=== PATIENT | female | born 1970 | race American Indian/Alaskan Native ===

== ENCOUNTER 2019-11-02 23:01 | Emergency (ER) | payer OTHER ==
[2019-11-02] MEDS ORDERED: SODIUM CHLORIDE 0.9% 1000 ML 1,000 ML IV ONE (23:47)
[2019-11-02 23:55] LABS: Alanine Aminotransferase 9 units/L (7-56); Albumin 4.3 g/dL (3.9-5); BUN/Creatinine Ratio 15; Blood Urea Nitrogen 12 mg/dL (7-17); Hemolysis Index 9
[2019-11-03 00:02] LABS: Mean Corpuscular HGB Conc 29 % (30-34); Platelet Count 438 K/mm3 (140-440); Red Blood Count 5.33 M/mm3 (3.65-5.03)
[2019-11-03 00:03] LABS: Hemoglobin 8.2 gm/dl (10.1-14.3); Mean Corpuscular Volume 53 fl (79-97); Red Cell Distribution Width 22.8 % (13.2-15.2)
--- NOTE | 2019-11-03 00:41 | XRay Report ---
CHEST 1 VIEW 11/03/2019 12:08 AM INDICATION / CLINICAL INFORMATION: dizziness. COMPARISON: None available. FINDINGS: SUPPORT DEVICES: None. HEART / MEDIASTINUM: Heart is normal size. There is deviation of the trachea to the right with soft t issue density in the left upper mediastinum/neck. LUNGS / PLEURA: No significant pulmonary or pleural abnormality. No pneumothorax. ADDITIONAL FINDINGS: No significant additional findings. IMPRESSION: 1. No acute pulmonary or pleural findings. 2. Rightward tracheal deviation with soft tissue density on the left possibly related to enlarged thy roid. Clinical correlation is recommended. Signer Name: Christina Lam MD Signed: 11/03/2019 12:37 AM Workstation Name: [id number]
--- NOTE | 2019-11-03 00:53 | Emergency Department Report ---
ED Dizziness HPI - General Chief Complaint: Dizziness Stated Complaint: DIZZY, WEAK, AND DIARRHEA Time Seen by Provider: 11/02/19 23:41 Source: patient Mode of arrival: Ambulatory Limitations: No Limitations - History of Present Illness Initial Comments: Ms. Troy is a 48-year-old -[place] female with a history of hypothyroid disease and umbilical hernia who presents for dizziness after allergic reaction episode that started on yesterday. She states she began to break out in hives on yesterday not sure of cause however hives are all resolved at this time she does complain of intermittent itching cough and sore throat. There is no fever or chills. There was intermittent nausea vomiting on yesterday. Patient states symptoms are relieved by rest. Symptoms are exacerbated by activity.. Patient [facility]. She denies palpitations shortness of breath or chest pain at this time. Patient is tolerating p.o. intake without nausea vomiting at this time patient does not appear toxic and with no acute respiratory distress at this time. MD Complaint: dizziness Onset/Timin -: days(s) Timing: sudden onset Description: other (dizziness ) History of Same: No History of Trauma: No Severity: mild Improves With: rest Worsens With: movement Associated Symptoms: rash. denies: ataxia, chest pain, confusion, cough, diaphoresis, fever/chills, malaise, shortness of breath, syncope, weakness - Related Data Previous Rx's Medication Instructions Recorded Last Taken Type Acetaminophen/Codeine [Tylenol 1 tab PO Q6H PRN #12 tab 11/03/19 Unknown Rx /Codeine # 3 tab] Allergies Allergy/AdvReac Type Severity Reaction Status Date / Time No Known Allergies Allergy Unverified 11/02/19 23:10 ED Review of Systems ROS: Stated complaint: DIZZY, WEAK, AND DIARRHEA Other details as noted in HPI Constitutional: denies: chills, fever Eyes: denies: eye pain, eye discharge, vision change ENT: throat pain, congestion. denies: ear pain Respiratory: orthopnea. denies: cough, shortness of breath, wheezing Cardiovascular: denies: chest pain, palpitations Endocrine: no symptoms reported Gastrointestinal: denies: abdominal pain, nausea, vomiting, diarrhea Genitourinary: denies: urgency, dysuria, discharge Musculoskeletal: denies: back pain, joint swelling, arthralgia Skin: denies: rash, lesions Neurological: denies: headache, weakness, paresthesias Psychiatric: denies: anxiety, depression Hematological/Lymphatic: denies: easy bleeding, easy bruising ED Past Medical Hx - Past Medical History Previous Medical History?: No - Surgical History Past Surgical History?: Yes Additional Surgical History: Hernia repair - Social History Smoking Status: Never Smoker Substance Use Type: None - Medications Home Medications: Home Medications Medication Instructions Recorded Confirmed Last Taken Type Acetaminophen/Codeine [Tylenol 1 tab PO Q6H PRN #12 tab 11/03/19 Unknown Rx /Codeine # 3 tab] ED Physical Exam - General Limitations: No Limitations General appearance: alert, in no apparent distress - Head Head exam: Present: atraumatic, normocephalic - Eye Eye exam: Present: normal appearance, PERRL, EOMI Pupils: Present: normal accommodation - ENT ENT exam: Present: mucous membranes moist, TM's normal bilaterally, normal external ear exam - Expanded ENT Exam Expanded Ear exam: Present: normal external inspection Mouth exam: Present: normal external inspection, tongue normal. Absent: trismus, muffled voice Throat exam: Positive: normal inspection, tonsillar erythema, tonsillomegaly, other (uvula midline no exudate ). Negative: tonsillar exudate, R peritonsillar mass, L peritonsillar mass - Neck Neck exam: Present: normal inspection, full ROM, thyromegaly. Absent: tenderness, meningismus, lymphadenopathy - Expanded Neck Exam Expanded Neck exam: Present: thyroid mass. Absent: tenderness, midline deformity, carotid bruit, tracheal deviation - Respiratory Respiratory exam: Present: normal lung sounds bilaterally. Absent: respiratory distress, wheezes, rales, rhonchi, stridor, chest wall tenderness - Cardiovascular Cardiovascular Exam: Present: regular rate, normal rhythm, normal heart sounds. Absent: systolic murmur, diastolic murmur, rubs, gallop - GI/Abdominal GI/Abdominal exam: Present: soft, normal bowel sounds. Absent: distended, tenderness, bruit, hernia - Rectal Rectal exam: Present: deferred - Extremities Exam Extremities exam: Present: normal inspection - Back Exam Back exam: Present: normal inspection, full ROM. Absent: tenderness, CVA tenderness (R), CVA tenderness (L), vertebral tenderness - Neurological Exam Neurological exam: Present: alert, oriented X3, CN II-XII intact, normal gait - Psychiatric Psychiatric exam: Present: normal affect - Skin Skin exam: Present: warm ED Course Vital Signs 11/02/19 11/03/19 11/03/19 23:15 01:09 03:19 Temperature 98.1 F 98.7 F Pulse Rate 111 H 99 H 92 H Respiratory 20 16 17 Rate Blood Pressure 101/58 Blood Pressure 126/78 [Right] O2 Sat by Pulse 100 100 100 Oximetry ED Medical Decision Making - Lab Data Result diagrams: 11/02/19 23:23 11/02/19 23:23 Labs 11/02/19 11/02/19 11/02/19 23:23 23:23 23:23 WBC 8.3 RBC 5.33 H Hgb 8.2 L Hct 28.0 L MCV 53 L MCH 15 L MCHC 29 L RDW 22.8 H Plt Count 438 Lymph % (Auto) Welding Robot Operator [place] % (Auto) Welding Robot Operator Eos % (Auto) Welding Robot Operator Baso % (Auto) Welding Robot Operator Lymph # Welding Robot Operator [place] # Welding Robot Operator Eos # Welding Robot Operator Baso # Welding Robot Operator Add Manual Diff Complete Total Counted 100 Seg Neutrophils % Welding Robot Operator Seg Neuts % (Manual) 87.0 H Band Neutrophils % 0 Lymphocytes % (Manual) 12.0 L Reactive Lymphs % (Man) 0 Monocytes % (Manual) 1.0 Eosinophils % (Manual) 0 Basophils % (Manual) 0 Metamyelocytes % 0 Myelocytes % 0 Promyelocytes % 0 Blast Cells % 0 Nucleated RBC % Not Reportable Seg Neutrophils # Welding Robot Operator Seg Neutrophils # Man 7.2 Band Neutrophils # 0.0 Lymphocytes # (Manual) 1.0 L Abs React Lymphs (Man) 0.0 Monocytes # (Manual) 0.1 Eosinophils # (Manual) 0.0 Basophils # (Manual) 0.0 Metamyelocytes # 0.0 Myelocytes # 0.0 Promyelocytes # 0.0 Blast Cells # 0.0 WBC Morphology Not Reportable Hypersegmented Neuts Not Reportable Hyposegmented Neuts Not Reportable Hypogranular Neuts Not Reportable Smudge Cells Not Reportable Toxic Granulation Not Reportable Toxic Vacuolation Not Reportable Dohle Bodies Not Reportable Pelger-Huet Anomaly Not Reportable Adam Rods Not Reportable Platelet Estimate Consistent w auto Clumped Platelets Not Reportable Plt Clumps, EDTA Not Reportable Large Platelets Not Reportable Giant Platelets Not Reportable Platelet Satelliting Not Reportable Plt Morphology Comment Not Reportable RBC Morphology Not Reportable Dimorphic RBCs Not Reportable Polychromasia Not Reportable Hypochromasia 1+ Poikilocytosis Not Reportable Anisocytosis 1+ Microcytosis 1+ Macrocytosis Not Reportable Spherocytes Not Reportable Pappenheimer Bodies Not Reportable Sickle Cells Not Reportable Target Cells Not Reportable Tear Drop Cells Not Reportable Ovalocytes Not Reportable Helmet Cells Not Reportable Benavides-[place] Bodies Not Reportable [place] Rings Not Reportable Tigre Cells Not Reportable Bite Cells Not Reportable Crenated Cell Not Reportable Elliptocytes 1+ Acanthocytes (Spur) Not Reportable Rouleaux Not Reportable Hemoglobin C Crystals Not Reportable Schistocytes Not Reportable Malaria parasites Not Reportable Bong Bodies Not Reportable Hem Pathologist Commnt No Sodium 135 L Potassium 3.3 L Chloride 102.5 Carbon Dioxide 19 L Anion Gap 17 BUN 12 Creatinine 0.8 Estimated GFR > 60 BUN/Creatinine Ratio 15 Glucose 116 H Calcium 9.0 Total Bilirubin 0.20 AST 20 ALT 9 Alkaline Phosphatase 42 Troponin T < 0.010 Total Protein 7.2 Albumin 4.3 Albumin/Globulin Ratio 1.5 Lipase 33 TSH Urine Color Urine Turbidity Urine pH Ur Specific [place] Urine Protein Urine Glucose (UA) Urine Ketones Urine Blood Urine Nitrite Urine Bilirubin Urine Urobilinogen Ur Leukocyte Esterase Urine WBC (Auto) Urine RBC (Auto) U Epithel Cells (Auto) Urine Mucus 11/03/19 11/03/19 01:39 01:55 WBC RBC Hgb Hct MCV MCH MCHC RDW Plt Count Lymph % (Auto) [place] % (Auto) Eos % (Auto) Baso % (Auto) Lymph # [place] # Eos # Baso # Add Manual Diff Total Counted Seg Neutrophils % Seg Neuts % (Manual) Band Neutrophils % Lymphocytes % (Manual) Reactive Lymphs % (Man) Monocytes % (Manual) Eosinophils % (Manual) Basophils % (Manual) Metamyelocytes % Myelocytes % Promyelocytes % Blast Cells % Nucleated RBC % Seg Neutrophils # Seg Neutrophils # Man Band Neutrophils # Lymphocytes # (Manual) Abs React Lymphs (Man) Monocytes # (Manual) Eosinophils # (Manual) Basophils # (Manual) Metamyelocytes # Myelocytes # Promyelocytes # Blast Cells # WBC Morphology Hypersegmented Neuts Hyposegmented Neuts Hypogranular Neuts Smudge Cells Toxic Granulation Toxic Vacuolation Dohle Bodies Pelger-Huet Anomaly Adam Rods Platelet Estimate Clumped Platelets Plt Clumps, EDTA Large Platelets Giant Platelets Platelet Satelliting Plt Morphology Comment RBC Morphology Dimorphic RBCs Polychromasia Hypochromasia Poikilocytosis Anisocytosis Microcytosis Macrocytosis Spherocytes Pappenheimer Bodies Sickle Cells Target Cells Tear Drop Cells Ovalocytes Helmet Cells Benavides-[place] Bodies [place] Rings Tigre Cells Bite Cells Crenated Cell Elliptocytes Acanthocytes (Spur) Rouleaux Hemoglobin C Crystals Schistocytes Malaria parasites Bong Bodies Hem Pathologist Commnt Sodium Potassium Chloride Carbon Dioxide Anion Gap BUN Creatinine Estimated GFR BUN/Creatinine Ratio Glucose Calcium Total Bilirubin AST ALT Alkaline Phosphatase Troponin T Total Protein Albumin Albumin/Globulin Ratio Lipase TSH 0.213 L Urine Color Straw Urine Turbidity Clear Urine pH 5.0 Ur Specific [place] 1.008 Urine Protein <15 mg/dl Urine Glucose (UA) Neg Urine Ketones Neg Urine Blood Lg Urine Nitrite Neg Urine Bilirubin Neg Urine Urobilinogen < 2.0 Ur Leukocyte Esterase Neg Urine WBC (Auto) 1.0 Urine RBC (Auto) 1.0 U Epithel Cells (Auto) 2.0 Urine Mucus Few - EKG Data EKG shows normal: sinus rhythm, axis, intervals, QRS complexes, ST-T waves Rate: normal - EKG Data Interpretation: no acute changes, normal EKG (NSR no ST Elevated NV ekg interp by ed attending. ) - Radiology Data Radiology results: report reviewed, image reviewed Findings Reporting MD: Christina Lam Dictation Time: November 03, 2019 03:01 Sap Developer: Not available [employer] Table Assembler Date: CT NECK WITH CONTRAST INDICATION / CLINICAL INFORMATION: Pt complains of a neck mass that is re current from time to time. The mass is anterior, just below the hyoid. Present for 4 days. Omnipaque 300 / 100ml's was used for this exam. 1.5cc per second, 22g RT Dosumpedus. TECHNIQUE: Axial CT images were obtained through the neck after 100 mL Omnipaque 300 IV contrast. Coronal and sagittal 2-D reconstruction images were produced. All CT scans at this location are performed using CT dose reduction for ALARA by means of automated exposure control. COMPARISON: Chest radiograph earlier in the day FINDINGS: CUTANEOUS and SUBCUTANEOUS SOFT TISSUES: No significant abnormality. AERODIGESTIVE TRACT and ADJACENT SOFT TISSUES: No significant abnormality. SALIVARY GLANDS: No significant abnormality. LYMPH NODES: No significant abnormality. VASCULAR STRUCTURES: No significant abnormality. ORBITS AND IMAGED BRAIN: No significant abnormality. PARANASAL SINUSES / MASTOIDS: No significant abnormality. TEETH and PERIODONTAL TISSUES: No significant abnormality. CERVICAL SPINE: No significant abnormality. THYROID GLAND: Thyroid gland is markedly enlarged involving both lobes. The left lobe, however, is larger than the right with rightward deviation of the trachea. There are scattered calcifications within the thyroid gland. There is a mildly prominent pyramidal lobe which extends superiorly from the thyroid gland to the inferior margin of the hyoid bone. This likely corresponds to the palpable abnormality. SUPERIOR MEDIASTINUM: Enlarged thyroid gland extends substernal in location. LUNG APICES: No significant abnormality. ADDITIONAL FINDINGS: None. IMPRESSION: 1. 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 2. Mildly prominent pyramidal lobe of the thyroid gland which extends superiorly from the thyroid to the inferior margin of the hyoid bone and likely corresponds to the palpable abnormality. Signer Name: Christina Lam MD Signed: 11/03/2019 3:01 AM Workstation Name: [id number] Findings Reporting MD: Christina Lam Dictation Time: November 03, 2019 03:01 Sap Developer: Not available Papeterie Table Assembler Date: CT NECK WITH CONTRAST INDICATION / CLINICAL INFORMATION: Pt complains of a neck mass that is recurrent from time to time. The mass is anterior, just below the hyoid. Present for 4 days. Omnipaque 300 / 100ml's was used for this exam. 1.5cc per second, 22g RT Dosumpedus. TECHNIQUE: Axial CT images were obtained through the neck after 100 mL Omnipaque 300 IV contrast. Coronal and sagittal 2-D reconstruction images were produced. All CT scans at this location are performed using CT dose reduction for ALARA by means of automated exposure control. COMPARISON: Chest radiograph earlier in the day FINDINGS: CUTANEOUS and SUBCUTANEOUS SOFT TISSUES: No significant abnormality. AERODIGESTIVE TRACT and ADJACENT SOFT TISSUES: No significant abnormality. SALIVARY GLANDS: No significant abnormality. LYMPH NODES: No significant abnormality. VASCULAR STRUCTURES: No significant abnormality. ORBITS AND IMAGED BRAIN: No significant abnormality. PARANASAL SINUSES / MASTOIDS: No significant abnormality. TEETH and PERIODONTAL TISSUES: No significant abnormality. CERVICAL SPINE: No significant abnormality. THYROID GLAND: Thyroid gland is markedly enlarged involving both lobes. The left lobe, however, is larger than the right with rightward deviation of the trachea. There are scattered calcifications within the thyroid gland. There is a mildly prominent pyramidal lobe which extends superiorly from the thyroid gland to the inferior margin of the hyoid bone. This likely corresponds to the palpable abnormality. SUPERIOR MEDIASTINUM: Enlarged thyroid gland extends substernal in location. LUNG APICES: No significant abnormality. ADDITIONAL FINDINGS: None. IMPRESSION: 1. 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 2. Mildly prominent pyramidal lobe of the thyroid gland which extends superiorly from the thyroid to the inferior margin of the hyoid bone and likely corresponds to the palpable abnormality. Signer Name: Christina Lam MD Signed: 11/03/2019 3:01 AM Workstation Name: [id number] - Medical Decision Making cxr: neck mass mild trachea displacement right, CT Neck: goiter, with trachea distplacement, pt states breathing is miproved ad back to baseline , She ois electing to see her [place] doctor who has been follow up her for pase 3 yrs. pt is verbalized agreement and understanding of discharge plan, pt is currently alert and oriented x3 tolerating p.o. intake without difficulty. There is no shortness of breath notes no stridor or wheezing. There is no fevers or chills patient will be DC'd home in stable condition at this time. Critical care attestation.: If time is entered above; I have spent that time in minutes in the direct care of this critically ill patient, excluding procedure time. ED Disposition Clinical Impression: Goiter, Anemia of chronic disease Disposition: DC-01 TO HOME OR SELFCARE Is pt being admited?: No Does the pt Need Aspirin: No Condition: Stable Instructions: Thyroid Goiter (ED) Additional Instructions: [facility] and [facility] as previously schedled. Prescriptions: Acetaminophen/Codeine [Tylenol /Codeine # 3 tab] 1 tab PO Q6H PRN #12 tab PRN Reason: pain Referrals: HARLEEN MANJARREZ DO [Staff Physician] - 3-5 Days SIVAKUMAR ALMONTE MD [Referring] - 3-5 Days Forms: Work/School Release Form(ED) Time of Disposition: 05:14
[2019-11-03] MEDS ORDERED: diphenhydrAMINE 25 MG CAP PO ONE (01:23)
[2019-11-03] MEDS ORDERED: FAMOTIDINE 20 MG TAB PO ONE (01:23)
[2019-11-03] MEDS ORDERED: dexAMETHasone 20 MG/5 ML VIAL IM ONE (01:23)
[2019-11-03] MEDS ORDERED: diphenhydrAMINE 50 MG/ML VIAL IV ONE (01:28)
[2019-11-03] MEDS ORDERED: FAMOTIDINE 20 MG/2 ML INJ IV ONE (01:28)
[2019-11-03] MEDS ORDERED: dexAMETHasone 20 MG/5 ML VIAL IV ONE (01:28)
[2019-11-03 01:58] LABS: Total Cells Counted 100
[2019-11-03 01:59] LABS: Anisocytosis 1+; Basophils % (Manual) 0 % (0.0-1.8); Eosinophils % (Manual) 0 % (0.0-4.3); Hypochromasia 1+; Platelet Estimate Consistent w Auto
[2019-11-03 02:22] LABS: Bilirubin,Urine NEG (Negative); Blood,Urine LG (Negative); Color,Urine Straw (Yellow); Mucus,Urine FEW /HPF; Protein,Urine <15 mg/dL mg/dL (Negative); Urobilinogen,Urine < 2.0 mg/dL (<2.0)
[2019-11-03 03:25] VITALS: BP 126/78
[2019-11-03] MEDS ORDERED: SODIUM CHLORIDE 0.9% 1000 ML 1,000 ML ONE (03:34)
[2019-11-03] MEDS ORDERED: SODIUM CHLORIDE 0.9% 1000 ML 1,000 ML IV ONE (03:36)
--- NOTE | 2019-11-03 04:05 | Cat Scan Report ---
CT NECK WITH CONTRAST INDICATION / CLINICAL INFORMATION: Pt complains of a neck mass that is recurrent from time to time. The mass is anterior, just below the hyoid. Present for 4 days. Omnipaque 300 / 100ml's was used for this exam. 1.5cc per second, 22g RT Dosumpedus. TECHNIQUE: Axial CT images were obtained through the neck after 100 mL Omnipaque 300 IV contrast. Coronal and sa gittal 2-D reconstruction images were produced. All CT scans at this location are performed using CT dose reduction for ALARA by means of automated exposure control. COMPARISON: Chest radiograph earlier in the day FINDINGS: CUTANEOUS and SUBCUTANEOUS SOFT TISSUES: No significant abnormality. AERODIGESTIVE TRACT and ADJACENT SOFT TISSUES: No significant abnormality. SALIVARY GLANDS: No significant abnormality. LYMPH NODES: No significant abnormality. VASCULAR STRUCTURES: No significant abnormality. ORBITS AND IMAGED BRAIN: No significant abnormality. PARANASAL SINUSES / MASTOIDS: No significant abnormality. TEETH and PERIODONTAL TISSUES: No significant abnormality. CERVICAL SPINE: No significant abnormality. THYROID GLAND: Thyroid gland is markedly enlarged involving both lobes. The left lobe, however, is la rger than the right with rightward deviation of the trachea. There are scattered calcifications withi n the thyroid gland. There is a mildly prominent pyramidal lobe which extends superiorly from the thy roid gland to the inferior margin of the hyoid bone. This likely corresponds to the palpable abnormal ity. SUPERIOR MEDIASTINUM: Enlarged thyroid gland extends substernal in location. LUNG APICES: No significant abnormality. ADDITIONAL FINDINGS: None. IMPRESSION: 1. 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 2. Mildly prominent pyramidal lobe of the thyroid gland which extends superiorly from the thyroid to the inferior margin of the hyoid bone and likely corresponds to the palpable abnormality. Signer Name: Christina Lam MD Signed: 11/03/2019 4:01 AM Workstation Name: [id number]
== END 2019-11-03 05:25 | disposition home or self-care (01) ==
LOC: ED 23:01
DX: E04.8 Other specified nontoxic goiter (principal); D64.89 Other specified anemias; Z98.890 Other specified postprocedural states
CPT/HCPCS: 36415; 70491; 71045; 80053; 81001; 83690; 84443; 84484; 85007; 85025; 93005; 96361; 96374; 96375; 99284; J1100; J1200; J7030; Q9967